=== PATIENT | male | born 1995 | race Caucasian/White ===

== ENCOUNTER → 2020-04-23 | Emergency (ER) | payer OTHER ==
[~2020-04-23] VITALS: Ht 177.8 cm; Wt 83.2 kg
[~2020-04-23] MED LIST: CefTRIAXone 1000mg IM Kit (w/lidocaine diluent) IM ONE; DICY10CA88 PO; FAMO-49 PO; ONDA4TAB6 PO; SULF1TAB49 PO; dicyclomine 10 MG capsule PO ONE; famotidine 20mg tablet PO ONE; iohexol 300mg/ml 100ml inj. ONE; ketorolac tromethamine 15mg/ml inj. IM ONE; mag hydrox/Alum hydrox/simeth 30ml oral suspension PO ONE
[2020-04-23 13:06] LABS: BASOPHILS # (AUTO) 0.1 X10'3 (0-0.2); BASOPHILS % (AUTO) 0.9 % (0-1); EOSINOPHILS # (AUTO) 0.3 X10'3 (0-0.9); EOSINOPHILS % (AUTO) 2.6 % (0-6); HEMATOCRIT 43.7 % (42.0-52.0); HEMOGLOBIN 14.6 g/dl (14.0-17.9); LYMPHOCYTES # (AUTO) 2.1 X10'3 (1.1-4.8); LYMPHOCYTES % (AUTO) 19.2 % (21-51); MEAN CORPUSCULAR HEMOGLOBIN 29.6 PG (27.0-31.0); MEAN CORPUSCULAR HGB CONC 33.4 g/dL (33.0-36.5); MEAN CORPUSCULAR VOLUME 88.5 FL (78-98); MONOCYTES % (AUTO) 9.3 % (2-12); NEUTROPHILS # (AUTO) 7.4 X10'3 (1.8-7.7); PLATELET COUNT 318 X10'3 (140-440); RED BLOOD COUNT 4.94 X10'6 (4.70-6.10); WHITE BLOOD COUNT 10.9 X10'3 (4.5-11.0)
[2020-04-23 13:22] LABS: ALANINE AMINOTRANSFERASE 58 U/L (12-78); ALBUMIN 4.3 G/DL (3.4-5.0); ALBUMIN/GLOBULIN RATIO 1.1 (1.1-1.5); ALKALINE PHOSPHATASE 67 IU/L (46-116); AMYLASE 59 U/L (25-115); ANION GAP 10 (8-16); ASPARTATE AMINO TRANSFERASE 48 U/L (10-37); BILIRUBIN,TOTAL 0.2 MG/DL (0.1-1.0); BLOOD UREA NITROGEN 19 MG/DL (7-18); BUN/CREATININE RATIO 19.4 (5.4-32.0); CALCIUM 9.7 MG/DL (8.5-10.1); CHLORIDE 101 MMOL/L (99-107); CREATININE 0.98 MG/DL (0.60-1.10); GLUCOSE 83 MG/DL (70-104); LIPASE 63 U/L (73-393); POTASSIUM 4.3 MMOL/L (3.5-5.1); SODIUM 139 MMOL/L (135-145); TOTAL CARBON DIOXIDE 28.2 MMOL/L (24-32); TOTAL PROTEIN 8.3 G/DL (6.4-8.2); eGFR > 90 ML/MIN
[2020-04-23 15:01] LABS: CLARITY,URINE CLEAR (Clear); COLOR,URINE YELLOW (Yellow); GLUCOSE, URINE NEGATIVE (Neg); KETONES,URINE NEGATIVE (Neg); LEUKOCYTE ESTERASE ,URINE TRACE (Neg); NITRITES, URINE NEGATIVE (Neg); OCCULT BLOOD,URINE TRACE-INTACT (Neg); PH,URINE 7.5 (4.8-8.0); PROTEIN,URINE NEGATIVE (Neg)
[2020-04-23 15:07] LABS: UA COLLECTION TYPE VOIDED
[2020-04-23 15:08] LABS: BACTERIA,URINE FEW /HPF (Neg); SQUAMOUS EPITHELIAL CELL,UR FEW /LPF (FEW)
[2020-04-23 15:09] LABS: RBC,URINE 0-2 /HPF (0-2); WBC,URINE 0-4 /HPF (0-4)
[2020-04-23 18:58] VITALS: BP 142/68
== END | disposition home or self-care (01) ==
LOC: ER 12:31
DX: N39.0 Urinary tract infection, site not specified (principal); R10.31 Right lower quadrant pain; R10.32 Left lower quadrant pain; Z79.899 Other long term (current) drug therapy
CPT/HCPCS: 36415; 74177; 80053; 81001; 82150; 83690; 85025; 87088; 96372; 99285; J0696; J1885; Q9967; 99283

== ENCOUNTER 2024-12-31 11:00 | Emergency (ER) | payer BC, OTHER ==
[~2024-12-31] VITALS: Ht 177.8 cm; Wt 83.1 kg
[~2024-12-31 11:00] MED LIST changes: -CefTRIAXone 1000mg IM Kit (w/lidocaine diluent) IM ONE; -SULF1TAB49 PO; -dicyclomine 10 MG capsule PO ONE; -famotidine 20mg tablet PO ONE; -iohexol 300mg/ml 100ml inj. ONE; -ketorolac tromethamine 15mg/ml inj. IM ONE; -mag hydrox/Alum hydrox/simeth 30ml oral suspension PO ONE
[2024-12-31 11:12] VITALS: BP 138/97; PULSE 120; TEMP 97.4; O2SAT 96
[2024-12-31 11:40] VITALS: RESP 16
--- NOTE | 2024-12-31 11:41 | RADIOLOGY REPORT ---
Procedure: DI FINGER(S) 12/31/2024 11:30 AM TECHNIQUE: DI FINGER(S) Indication: Finger Pain Comparison: None FINDINGS: Dislocation of the proximal interphalangeal joint of the right 3rd digit IMPRESSION: 1. Dislocation proximal interphalangeal joint right 3rd digit
[2024-12-31] MEDS: LIDOcaine 1% 30ml preserv. free vial IJ ONE (12:37)
--- NOTE | 2024-12-31 13:00 | Physician Documentation ---
History of Present Illness ~ Chief Complaint: Finger pain Stated Complaint: FINGER PAIN Time Seen by MD: 11:48 Primary Medical Doctor: NONE Source: patient Mode of Arrival: POV Exam Limitations: no limitations HPI 29-year-old right-handed male with chief complaint right 3rd digit pain that occurred about an hour prior to arrival. He states playing softball and he jammed his finger. He immediately noticed the deformity of his finger current UR. No pre arrival treatment. Tetanus within 5 years: No Medication Reconciliation Allergies: Coded Allergies: No Known Allergies (Unverified , 12/31/24) Scheduled Dicyclomine Hcl* (Bentyl*), 1 CAP PO Q12H Famotidine (Famotidine), 1 TAB PO Q12H Ondansetron Hcl (Zofran), 1 TAB PO Q12H PRN Past Medical History Past Medical History: No Pertinent History Review of Systems All Other Systems at this time: Reviewed and Negative Physical Exam Vital Signs: Temperature: 97.4, Source: Temporal, Heart Rate: 120, Respiratory Rate: 16, BP: 138/97, Pulse Oximetry: 96, Weight: 83.100 Oxygen Flow Rate: 0 Physical Exam GENERAL: Alert, no acute distress. HEENT: NCAT, EOMI, PERRL, normal oropharynx, moist oral mucosa. NECK: Supple, trachea midline. CARDIAC: Regular rate and rhythm, no murmurs, rubs, or gallops. Equal distal pulses. No lower extremity edema, cap refill less than 2 seconds. RESPIRATORY: Equal breath sounds, clear to auscultation bilaterally, no respiratory distress. MUSCULOSKELETAL: RIGHT 3RD DIGIT OBVIOUS DEFORMITY DIGIT IS ANGULATED SKIN IS INTACT, NO ERYTHEMA OR ECCHYMOSIS, NORMAL INSPECTION OF NAIL PLATE. REST OF DIGITS NORMAL INSPECTION, NTTP, AROM FULL. Normal gait. NEUROLOGICAL: Awake, alert, and oriented x 3. SKIN: Warm/dry, no pallor, no rash. PSYCH: Alert and appropriate. Affect congruent with mood. Speech is clear. Good eye contact. Procedures Procedures Procedure: DI FINGER(S) 12/31/2024 11:30 AM TECHNIQUE: DI FINGER(S) Indication: Finger Pain Comparison: None FINDINGS: Dislocation of the proximal interphalangeal joint of the right 3rd digit IMPRESSION: 1. Dislocation proximal interphalangeal joint right 3rd digit EXAM: DI FINGER(S) INDICATION: post reduction right 3rd finger TECHNIQUE: 3 views of the right 3rd digit COMPARISON: DI FINGER(S) on DOS: 12/31/24 FINDINGS/IMPRESSION: No radiographic evidence of an acute osseous abnormality. There is no acute fracture, osseous malalignment, or aggressive focal osseous lesion. There is no radiographically apparent joint space narrowing. Splinting Location: RIGHT 3RD DIGIT Pre-Made Type: DIGIT SPLINT Pre-Proc Neuro Vasc Exam: normal Post-Proc Neuro Vasc Exam: normal Splint Placed By: voice studies director Tolerated Procedure Well?: yes, no complications Joint Reduction : Joint Reduction Site: RIGHT 3RD DIGIT Reduction By: myself Conscious Sedation: No Medications/Dose: LIDOCAINE WITHOUT EPI 4CC Reduction Attempts: 1 Pre-Procedure NV Exam: within normal limits Post-Procedure NV Exam: within normal limits Post Reduction Film: joint reduced Tolerated Procedure Well?: yes, no complications Progress Results/Orders Reviewed/noted all lab results: Yes Results/Orders Orders - CORINE HERNANDEZ Finger(S) (12/31/24 12:39) Completed Orders - CORINE HERNANDEZ Lidocaine 1% 30ml Vial (Xylocaine 1% Via (12/31/24 12:10) Finger(S) (12/31/24 12:39) Vital Signs 12/31/24 12/31/24 11:12 11:40 Temp 97.4 Pulse 120 Resp 18 16 B/P (MAP) 138/97 Pulse Ox 96 O2 Flow Rate 0 Medical Decision Making Additional information obtaine: N/A Findings N/A General Diff Dx:Considerations: Unlikely: Other Shoulder Diff Dx:Consideration: Unlikely: Other Elbow Diff Dx:Considerations: Unlikely: Other Wrist Diff Dx:Considerations: Unlikely: Other Hand Diff Dx:Considerations: Unlikely: Other Finger Diff Dx:Considerations: Include: Abrasion, Cellulitis, Contusion, Dislocation, Fracture, Hematoma, Laceration, Neurovascular injury, Open fracture, Subungual hematoma Departure Time of Disposition: 13:00 Disposition: 01 HOME / SELF CARE / HOMELESS Impression: Primary Impression: Dislocation, finger, interphalangeal joint Qualified Codes: S63.279A - Dislocation of unspecified interphalangeal joint of unspecified finger, initial encounter Condition: Stable Discharge Instructions: Finger or Thumb Dislocation, [id number] Additional Instructions: WE SUCCESSFULLY REDUCED YOUR FINGER IF YOU HAVE ANY PERSISTENT PAIN, I RECOMMEND YOU HAVE YOUR PCP SEND REFERRAL TO [facility]. WEAR SPLINT FOR A FEW DAYS Referrals: NO PRIMARY CARE PROVIDER (PCP) Education Educated: Patient Educated regarding: diagnosis, treatment, need for follow up Signature Scribe Signature: X Attestation: CORINE LOPEZ Dec 31, 2024 13:00
--- NOTE | 2024-12-31 13:32 | RADIOLOGY REPORT ---
EXAM: DI FINGER(S) INDICATION: post reduction right 3rd finger TECHNIQUE: 3 views of the right 3rd digit COMPARISON: DI FINGER(S) on DOS: 12/31/24 FINDINGS/IMPRESSION: No radiographic evidence of an acute osseous abnormality. There is no acute fracture, osseous malalignment, or aggressive focal osseous lesion. There is no radiographically apparent joint space narrowing.
== END 2024-12-31 13:34 | disposition home or self-care (01) ==
LOC: ER 11:01
DX: S63.282A Dislocation of proximal interphalangeal joint of right middle finger, initial encounter (principal); X58.XXXA Exposure to other specified factors, initial encounter; Y93.64 Activity, baseball; Y92.89 Other specified places as the place of occurrence of the external cause; Y99.8 Other external cause status
CPT/HCPCS: 26770; 73140; 99284; A6449